=== PATIENT | female | born 1940 | race Caucasian/White ===

== ENCOUNTER 2017-05-11 05:42 | Day surgery (SDC) | payer MEDICARE ==
[2017-05-11] VITALS (12 sets, daily range): BP systolic 105–184; BP diastolic 41–80; PULSE 77–89; RESP 16–20; O2SAT 93–98
[~2017-05-11] VITALS: Ht 149.9 cm; Wt 91.0 kg
[~2017-05-11 05:42] MED LIST: ALBU2.5V4 INHALATION; ALBU8.5H2 INHALATION; AMLO10TA3 PO; ASPI-973 PO; ATRINH INH; BUPR100T7 PO; DICL100G26 TOPICAL; LEVO75TA4 PO; LIP40 PO; LISI40TA PO; Lactated Ringer's 1,000 ML IV SCH; METO-272 PO; NICO1PAT16 TRANSDERM; NYST1POW23 MC; OXYC-466 PO; PANT40TA3 PO; POLY17PO6 PO; TIOT18CA3 IH; TRAM50TA2 PO; magnesium gluconate; vitamin d3
[2017-05-11] MEDS ORDERED: Lidocaine PF 1% 30 mL Inj ONE (05:43)
[2017-05-11] MEDS ORDERED: Dexamethasone 4 mg/mL Inj ONE (05:43)
[2017-05-11] MEDS ORDERED: Glycopyrrolate 0.2 MG/ML 1mL Inj ONE (05:43)
[2017-05-11] MEDS ORDERED: Phenylephrine/NS-PF 100 mCg/mL 5 mL Syringe IVPUSH ONE (05:43)
[2017-05-11] MEDS ORDERED: fentaNYL-PF 50 mCg/mL 2 mL Inj ONE (05:43)
[2017-05-11] MEDS ORDERED: Rocuronium 10 mg/mL 5 mL Inj ONE (05:43)
[2017-05-11] MEDS ORDERED: Ondansetron 2 mg/mL 2 mL Inj ONE (05:43)
[2017-05-11] MEDS ORDERED: EPHEDrine/NS 5 mg/mL 5 mL Syringe ONE (05:43)
[2017-05-11] MEDS ORDERED: Neostigmine 1 mg/mL 10 mL Inj ONE (05:43)
[2017-05-11] MEDS ORDERED: Ketamine 10 mg/mL 20 mL Inj ONE (05:43)
[2017-05-11] MEDS ORDERED: Lactated Ringer's 1,000 ML IV ONE (06:35)
[2017-05-11] MEDS ORDERED: Lactated Ringer's 500 ML IV PRN (07:16)
[2017-05-11] MEDS ORDERED: Lactated Ringer's 1,000 ML IV SCH (07:16)
--- NOTE | 2017-05-11 07:16 | PCM.HPANE ---
Patient Data Date of Service: May 11, 2017 Surgeon Admitting Provider: Attending Provider:Weston Pike MD Primary Care Physician:Raúl Rievra MD Other Provider:Nancy Grissom Anesthesia Reason for Visit Calculus Of Gallbladder Ht/WT & BMI Height (Feet): 4 Height (Inches): 11.00 Weight (Kilograms): 91 Body Mass Index 40.00 Allergies Coded Allergies: Sulfa (Sulfonamide Antibiotics) (Verified Allergy, Unknown, 05/09/17) Uncoded Allergies: Penicillin (Allergy, Unknown, 03/01/04) Past Anesthesia History Anesthesia History: Denies:: Anesthesia Reactions Diabetes History Current Bedside Blood Glucose: 99 Medications Blood Thinner: Aspirin Hypertension Medication: Yes Home Meds Incl Beta Memo: Yes (metoprolol) Date Beta Memo Taken: May 10, 2017 Time Beta Memo Taken: 1800 Reported Medications Bupropion ER (Wellbutrin SR)100 Mg Tablet.er100 Mg PO BID Ref 0 05/09/17 [vitamin d3] No Conflict CheckUnknown Dose DAILY 05/09/17 Tramadol 50 Mg Tueffb74 Mg PO Q12H PRN For Pain Ref 0 05/09/17 Tiotropium [place] (Spiriva)18 Mcg Cap.w.dev18 Mcg IH DAILY #1 PKG Ref 0 05/09/17 Albuterol HFA (Proair HFA)8.5 Gm Hfa.aer.ad2 Puffs INHALATION Q4H PRN For Shortness of Breath #1 INHALER 05/09/17 Polyethylene Glycol 3350 (Miralax)17 Gm Powd.pack17 Gm PO DAILY 05/09/[address] 40 Mg Tablet.dr40 Mg PO DAILY Ref 0 05/09/17 oxyCODONE-Acetaminophen 10-325 mg 1 Each Tablet1 Tablet PO Q6H PRN For Pain Ref 0 05/09/17 Nystatin 1 Each Powder.ea.1 Each MC PRN skin irritation 100,000 05/09/17 Nicotine 21 mg/24 hr Patch 1 Each Patch.dysq1 Patch TRANSDERM DAILY Ref 0 05/09/17 [magnesium gluconate] No Conflict CheckUnknown Dose DAILY 05/09/17 Metoprolol Succinate ER 50 Mg Tab.er.24h50 Mg PO DAILY Ref 0 05/09/17 Lisinopril 40 Mg Gdprfv52 Mg PO DAILY 30 Days Ref 0 05/09/17 Levothyroxine 75 Mcg Pydgag63 Mcg PO DAILY Ref 0 05/09/17 Diclofenac Gel 100 Gm Tube1 Applic TOPICAL QID PRN For Pain #1 TUBE 05/09/17 Ipratropium [place] (Atrovent HFA)200 Puff/12.9 Gm Inhaler2 Puff INH TID #1 INH Ref 0 05/09/17 Atorvastatin (Lipitor)40 Mg Xipodt31 Mg PO DAILY Ref 0 05/09/17 Aspirin 81 Mg Wugfxl88 Mg PO DAILY Ref 0 05/09/17 Amlodipine 10 Mg Ppmyiw40 Mg PO DAILY Ref 0 05/09/17 Albuterol Neb Soln 2.5 Mg/3 Ml Vial.neb2.5 Mg INHALATION Q4H PRN For Shortness of Breath Ref 0 05/09/17 History History of ENT Problems?: Yes HEENT History: Denies:: Hearing Problem Denture Type: Full- Upper Full- Lower Teeth Condition: No Teeth Hx of Heart Problems?: Yes Cardiovascular History: Positive for:: Cardiac Surgery ([facility] 2003- HELLEN to RCA) Hypertension Denies:: Valvular Heart Disease (stress test 2007- ef 65%) Hx of Respiratory Problem?: Yes Respiratory History: Positive for:: COPD Use of Inhalers / NEBS Denies:: Oxygen Administration Use of C-PAP Machine Hx Neurologic Problems?: Yes Neurological History: Positive for:: Dizziness (hx of falls/ vertigo) Hx of GI Problems?: Yes Other GI Pertinent History: hx of gastric bypass Hx of Problems?: No Genitourinary History: Denies:: HX of Hemodialysis (CKD stage III) Female Hx: Denies:: Currently Hx Musculoskeletal Problems?: Yes Musculoskeletal History: Positive for:: Musculoskeletal Trauma (chronic gout) Osteoarthritis Hx of Psycho/Social Problems?: Yes Psycho Social History: Positive for:: Hx Depression Hx Surgeries?: Yes (gastric bypass, ) Hx Any Other Health Problems?: Yes Other History: Denies:: Cancer Thyroid Disease Bedside Blood Glucose: 99 Hx Alcohol Use: NoHx Substance Use: NoHave You Smoked inLast 12 mo: No Stop/Bang S-Snoring: Do You Snore Loudly: No T-Tired: feel tired, fatigued: No O-Obsered: Observed not breath: No P-Blood Pressure: treated: Yes B- Body Mass Index > 35 kg/m2: Yes A- Age over 50: Yes N- Neck Large Circumference: No G- Gender Male: No MARBIN Total Score: 3 MARBIN Risk Assessment: Low Risk, <3 Yes MARBIN Category 2: Yes Risk Assessment Category Category 1A: Patient has history of documented sleep apnea, and HAS NOT received any narcotic, sedative or anesthesia administration during this stay. Category 1B: Patient has history of documented sleep apnea, and HAS received any narcotic , sedative or anesthesia administration during this stay Category 2: Patient has SUSPECTED Obstructive Sleep Apnea, and HAS received any narcotic , sedative or anesthesia administration during this stay. Category 3: Patient has SUSPECTED Obstructive Sleep Apnea and HAS NOT received narcotic, sedative or anesthesia administration during this stay. Category 4: Outpatient in Procedural Areas with known sleep apnea or who screen positive for High Risk via the STOP/BANG questionnaire. Exam Exam Vital Signs Vital Signs Date Time Temp Pulse Resp B/P Pulse Ox O2 Delivery O2 Flow Rate FiO2 05/11/17 06:15 88 05/11/17 06:11 36.5 77 20 143/55 98 Room Air General Appearance: Alert, Oriented X3, Cooperative, No Acute Distress HEENT/AIRWAY: MP 1 Lungs: Clear to Auscultation, Normal Air Movement Heart: Exam Unremarkable, Regular Rate/Rhythm, No Murmurs/Rubs/Gallops Meds/Labs/Diagnostics Admission Meds Current Medications Lactated Ringer's (Lr) 1,000 ml @ ud STK-MED ONCE IV Last administered on 05/11 06:35; Start 05/11/17 at 06:35; Stop 05/11/17 at 06:36; Status DC Acetaminophen (Tylenol) 975 mg STK-MED ONCE PO Last administered on 05/11/17 06:40; Start 05/11/17 at 06:41; Stop 05/11/17 at 06:45; Status DC Gabapentin (Neurontin) 600 mg STK-MED ONCE .ROUTE Last administered on 06:40; Start 05/11/17 at 06:42; Stop 05/11/17 at 06:46; Status DC Bedside Blood Glucose: 99 Plan Impression Patient chart reviewed, patient interviewed and anesthestic plan with risks, benefits, and alternatives discussed, and informed consent obtained. NPO per Anesth. Guidelines: Yes ASA Physical Status: ASA3 Severe Disease Anesthetic Plan: GA Bene/Risks/Altern/Consents: Yes HP Complete Prior to Induction: Yes Henry Elizalde MD May 11, 2017 07:16
[2017-05-11] MEDS ORDERED: Bupivacaine-MPF 0.5% 30 mL Inj INFILTRATE ONE (07:18)
[2017-05-11] MEDS ORDERED: MetoCLOpramide 5 mg/mL 2 mL Inj IVPUSH PRN (07:20)
[2017-05-11] MEDS ORDERED: Phenylephrine 10,000 mCg/mL Inj IVPUSH PRN (07:20)
[2017-05-11] MEDS ORDERED: fentaNYL-PF 50 mCg/mL 2 mL Inj IVPUSH PRN (07:20)
[2017-05-11] MEDS ORDERED: EPHEDrine Sulfate 50 mg/mL Inj IVPUSH PRN (07:20)
[2017-05-11] MEDS ORDERED: Labetalol 5 mg/mL 4 mL Inj IV PRN (07:20)
[2017-05-11] MEDS ORDERED: HYDROmorphone 1 mg/mL Inj IVPUSH PRN (07:20)
[2017-05-11] MEDS ORDERED: Dexamethasone 4 mg/mL Inj IVPUSH PRN (07:20)
[2017-05-11] MEDS ORDERED: Ondansetron 2 mg/mL 2 mL Inj IVPUSH PRN (07:20)
[2017-05-11] MEDS ORDERED: hydrALAZINE 20 mg/mL Inj IVPUSH PRN (07:20)
[2017-05-11] MEDS ORDERED: HYDROcodone-APAP 5-325 mg Tablet PO PRN (09:05)
[2017-05-11] MEDS ORDERED: oxyCODONE-Acetamin 5-325 mg Tablet PO PRN (09:05)
--- NOTE | 2017-05-11 09:13 | OP ---
[address] [address] OPERATIVE REPORT PATIENT: PRO BARRIOS : 1940 MR#: [id number] ADMIT: 05/11/2017 JOB ID: [id number] DATE OF SURGERY: 05/11/2017 ANESTHESIA: General. PREOPERATIVE DIAGNOSIS(ES): 1. Symptomatic cholelithiasis. 2. Painful abdominal wall subcutaneous nodule. POSTOPERATIVE DIAGNOSIS(ES): 1. Symptomatic cholelithiasis. 2. Painful abdominal wall subcutaneous nodule. OPERATIVE PROCEDURE: 1. Laparoscopic cholecystectomy (22 modifier is billed due to increased complexity of the case given the patient's obesity and adhesions from prior operations requiring increased time and equipment utilization). 2. Excision of subcutaneous nodule from abdominal wall. SURGEON: Weston Pike MD. GLAZE SUPERVISOR: Krishna Russell PA-C (the blood and plasma laboratory assistant was required for the safe and timely completion of the case). COMPLICATIONS: None. ESTIMATED BLOOD LOSS: Less than 5 mL. CONDITION: Satisfactory. SPECIMEN: 1. Gallbladder. 2. Abdominal wall subcutaneous nodule. FINDINGS: There were some dense adhesions in the midline. The gallbladder also had adhesions of omentum to it. The gallbladder itself, however, did not appear significantly inflamed. There was a firm, approximately 2 cm subcutaneous nodule in the right mid abdomen which was excised. INDICATIONS/SIGNIFICANT HISTORY: The patient is a 77-year-old woman who has been experiencing episodic postprandial right upper quadrant abdominal pain accompanied by nausea. She underwent an ultrasound, which showed cholelithiasis. She was eventually referred to me. She also complained of a painful nodule in the upper abdomen. She had a history of open [place]-en-Y gastric bypass but still was unfortunately obese. OPERATIVE TECHNIQUE: The patient was taken to the operating room and placed in supine position. General anesthesia was administered. The abdomen was prepped and draped in a standard surgical fashion and a procedure pause performed. A small supraumbilical incision was made and a 10 mm Optiview trocar used to enter the abdomen. Pneumoperitoneum was achieved. However, though I could get a pneumoperitoneum, there were so many dense adhesions there was no mobility. I therefore inserted a 5 mm Optiview trocar in the right upper quadrant. This was in a free space. Local anesthetic was injected. An additional 5 mm port was inserted into the right lower abdomen. I then took down the adhesions using a combination of blunt and sharp dissection. This freed up my midline port. I then injected local anesthetic and inserted a subxiphoid port, as well as additional right upper quadrant port. There were dense adhesions to the gallbladder which were easily taken down. The gallbladder was then grasped and retracted cephalad. Dissection was begun to identify the cystic duct and cystic artery. There was a posterior cystic artery, which was clipped and taken with the cautery. A critical view of safety was achieved. Three clips were then placed on the cystic duct, and dissection of the gallbladder off the cystic plate was completed. The gallbladder was a little friable and just grabbing it there was a small hole made. However, there was no spillage of bile as I continued to grasp it keeping it closed. The gallbladder was then placed in an EndoCatch bag and removed through the umbilical port site. The fascia then was closed with 0 PDS using a laparoscopic suture passer. The lateral ports were then removed under direct visualization, followed by release of pneumoperitoneum and removing the main subxiphoid port. I then made an elliptical incision in the skin over the palpable subcutaneous nodule in the right mid abdomen. This was completely excised. The skin was then closed at all port site and mass excision site using 4-0 Monocryl. The entire procedure was well tolerated without complication.
[2017-05-11] MEDS ORDERED: Albuterol 2.5 mg/3 mL Inhalation Solution NEB ONE ×2 (09:15→09:25)
--- NOTE | 2017-05-11 09:41 | PCM.ANEP1 ---
Post Anesthesia PACU Phase 1 Assessment Vital Signs Vital Signs Date Time Temp Pulse Resp B/P Pulse Ox O2 Delivery O2 Flow Rate FiO2 05/11/17 09:35 79 16 135/41 93 Nasal Cannula 2 05/11/17 09:30 81 20 131/55 95 Nasal Cannula 2 05/11/17 09:25 81 17 135/64 97 Nasal Cannula 3 05/11/17 09:15 36.1 86 18 137/56 96 Nasal Cannula 3 05/11/17 09:10 85 20 145/56 97 Nasal Cannula 3 05/11/17 09:05 86 19 147/56 94 Nasal Cannula 3 05/11/17 09:00 88 17 160/56 96 Room Air 05/11/17 08:55 36.2 89 18 184/80 96 Room Air 05/11/17 06:15 88 05/11/17 06:11 36.5 77 20 143/55 98 Room Air Anesthetic Administered: GA Level of Alertness: Sleepy, easy to arouse Pain: No Nausea or Vomiting: No CV Function & Hydration Stable: Yes Airway Device: Endotrachial Tube Oxygen Delivery: Simple Mask Lungs: Clear to Auscultation, Normal Air Movement PACU Phase 2 Assessment Complications: No Follow up Care: N/A Patient Instructions Provided: N/A Henry Elizalde MD May 11, 2017 09:41
--- NOTE | 2017-05-15 14:51 | PATH ---
SURGICAL PATHOLOGY Attending Physician:Weston Pike MD CASE STATUS: Signed Out PATIENT NAME: PRO BARRIOS PID: [id number] : 1940 DATE COLLECTED:05/11/2017 22:10 SPECIMEN: 1: Gallbladder 2: Soft Tissue, NOS CLINICAL HISTORY: GALLSTONES, SUBCUTANEOUS NODULE 1). GALLBLADDER 2). ABDOMINAL WALL SUBCUTANEOUS NODULE FINAL DIAGNOSIS: 1.GALLBLADDER: CHRONIC CALCULOUS CHOLECYSTITIS. 2.ABDOMINAL WALL SUBCUTANEOUS NODULE: SOFT TISSUE WITH RESOLVING FAT NECROSIS AND FIBROUS SCARRING. ICD10 K80.66 GROSS DESCRIPTION: Received are two formalin-filled containers, each labeled with the patient's name. 1. Received in formalin, labeled with the patient's name and "gallbladder" is one gallbladder measuring 10.5 x 3.0 x 1.5 cm. The serosal surface is smooth and glistening. [place] are located at the cystic duct region. Upon sectioning, the wall is seen to measure up to 0.3 cm in thickness. The cystic duct region is impacted with multiple black multifaceted stones ranging in size from 0.1 x 0.1 x 0.1 cm to 0.5 x 0.5 x 0.5 cm. The tones are easily crusted. The mucosal surface is green and velvety. Photography Colorist sections are submitted in cassette 1A. 2. Received in formalin, labeled with the patient's name and "abdominal wall subcutaneous nodule" is one firm yellow-guardado tissue fragment measuring 3.0 x 1.5 x 1.0 cm. Photography Colorist section is submitted in cassette 2A. ([id number]) MICRO DESCRIPTION: See diagnosis. ICD-9 CODES: CPT CODES: 1: 25262 2: 24076 Electronically Signed Out Solis Camarena MD [facility] [address], [place] [address] Technical component performed at [facility], [facility] [address], [place], [address]
== END 2017-05-11 23:59 | disposition home or self-care (01) ==
LOC: SAS 05:42
PROVIDERS: ATTEND General Practice
DX: K80.10 Calculus of gallbladder with chronic cholecystitis without obstruction (principal); R22.2 Localized swelling, mass and lump, trunk; K66.0 Peritoneal adhesions (postprocedural) (postinfection); I12.9 Hypertensive chronic kidney disease with stage 1 through stage 4 chronic kidney disease, or unspecified chronic kidney disease; I25.10 Atherosclerotic heart disease of native coronary artery without angina pectoris; E78.5 Hyperlipidemia, unspecified; N18.3 Chronic kidney disease, stage 3 (moderate); E03.9 Hypothyroidism, unspecified; J44.9 Chronic obstructive pulmonary disease, unspecified; K21.9 Gastro-esophageal reflux disease without esophagitis; D51.0 Vitamin B12 deficiency anemia due to intrinsic factor deficiency; M1A.39X0 Chronic gout due to renal impairment, multiple sites, without tophus (tophi); E66.01 Morbid (severe) obesity due to excess calories; F32.9 Major depressive disorder, single episode, unspecified; Z98.84 Bariatric surgery status; Z95.5 Presence of coronary angioplasty implant and graft; Z87.891 Personal history of nicotine dependence; Z79.82 Long term (current) use of aspirin; Z68.39 Body mass index [BMI] 39.0-39.9, adult
CPT/HCPCS: 11402; 47562; 88304; 88305; J1100; J2370; J2405; J2710; J3010; J7120; J7613